=== PATIENT | male | born 1950 | race Caucasian/White ===

== ENCOUNTER 2018-01-12 17:53 | Inpatient (IN) | payer OTHER ==
[2018-01-12 17:59] VITALS: BMI 28.2
--- NOTE | 2018-01-12 22:36 | HP ---
Admission [facility] Chief Complaint: opioid rehabilitation Allergies/Adverse Reactions: Allergies Allergy/AdvReac Type Severity Reaction Status Date / Time No Known Allergies Allergy Verified 01/12/18 19:48 History of Present Illness: 67 yo male with hx of IV heroin dependence is here for rehabilitation. Reports using IV heroin although prescribed suboxone, reports not taking medication as directed. Last detox at [facility] three weeks ago. a PMHX: HTN, depression. Denies suicidal / homicidal ideation, reports hx of suicide attempts seven years ago by hanging. Denies hx of seizures, overdose or blackouts. #: [phone] Others' Prescriptions Patient Name: Xander Mendenhall Date: 1950 Address: [address] [place] [id number] Sex: Male Rx Written Rx Dispensed Drug Quantity Days Supply Prescriber Name 12/22/2017 12/22/2017 buprenorphine-naloxone 8-2 mg sl tablet 84 28 Yonatan Lambert MD 11/24/2017 11/24/2017 buprenorphine-naloxone 8-2 mg sl tablet 84 28 Yonatan Lambert MD 10/13/2017 10/13/2017 buprenorphine-naloxone 8-2 mg sl tablet 84 28 Yonatan Lambert MD 09/15/2017 09/15/2017 buprenorphine-naloxone 8-2 mg sl tablet 84 28 Yonatan Lambert MD 08/18/2017 08/18/2017 buprenorphine-naloxone 8-2 mg sl tablet 84 28 Yonatan Lambert MD 07/14/2017 07/14/2017 buprenorphine-naloxone 8-2 mg sl tablet 84 28 Yonatan Lambert MD 06/16/2017 06/16/2017 buprenorphine-naloxone 8-2 mg sl tablet 84 28 Yonatan Lambert MD 05/19/2017 05/19/2017 buprenorphine-naloxone 8-2 mg sl tablet 84 28 Yonatan Lambert MD 04/21/2017 05/01/2017 buprenorphine-naloxone 8-2 mg sl tablet 84 28 Yonatan Lambert MD 03/31/2017 03/31/2017 buprenorphine-naloxone 8-2 mg sl tablet 84 28 Yonatan Lambert MD 02/24/2017 02/27/2017 buprenorphine-naloxone 8-2 mg sl tablet 84 28 Yonatan Lambert MD Patient Name: Xander Mendenhall Date: 1950 Address: [address] [place] [id number] Sex: Male Rx Written Rx Dispensed Drug Quantity Days Supply Prescriber Name 01/27/2017 01/27/2017 buprenorphine-naloxone 8-2 mg sl tablet 84 28 Madelaine Posey A Exam Limitations: No Limitations - Ebola screening Have you been sick,other than usual withdrawal symptoms: No - Review of Systems Constitutional: Changes in sleep EENT: reports: Hearing Loss (decrease hearing b/t), Other (wers reading glasses) Respiratory: reports: No Symptoms reported Cardiac: reports: No Symptoms Reported GI: reports: Constipated (last BM yesterday) : reports: No Symptoms Reported Musculoskeletal: reports: No Symptoms Reported Integumentary: reports: No Symptoms Reported Neuro: reports: Dizziness Endocrine: reports: No Symptoms Reported Hematology: reports: No Symptoms Reported Psychiatric: reports: Orientated x3, Depressed Other Systems: Reviewed and Negative Patient History - Patient Medical History Hx Anemia: No Hx Asthma: No Hx Chronic Obstructive Pulmonary Disease (COPD): No Hx Cancer: No Hx Cardiac Disorders: No Hx Congestive Heart Failure: No Hx Hypertension: Yes (Lisinoprol 5 mg ) Hx Hypercholesterolemia: No Hx Pacemaker: No HX Cerebrovascular Accident: No Hx Seizures: No Hx Dementia: No Hx Diabetes: No Hx Gastrointestinal Disorders: No Hx Liver Disease: No Hx Genitourinary Disorders: No Hx Sexually Transmitted Disorders: No Hx Renal Disease (ESRD): No Hx Thyroid Disease: No Hx Human Immunodeficiency Virus (HIV): No Hx Hepatitis C: Yes (treated) Hx Depression: Yes Hx Suicide Attempt: No Hx Schizophrenia: No - Patient Surgical History Past Surgical History: Yes Hx Neurologic Surgery: No Hx Cataract Extraction: No Hx Cardiac Surgery: No Hx Lung Surgery: No Hx Breast Surgery: No Hx Breast Biopsy: No Hx Abdominal Surgery: No Hx Appendectomy: No Hx Cholecystectomy: No Hx Genitourinary Surgery: No Hx Section: No Hx Orthopedic Surgery: No Other Surgical History: VOCAL CORDS, HERNIA Anesthesia Reaction: No - PPD History Previous Implant?: Yes Documented Results: Positive w/o proof PPD to be Administered?: No - Smoking Cessation Smoking history: Never smoked Have you smoked in the past 12 months: No Hx Chewing Tobacco Use: No Initiated information on smoking cessation: No - Substance & Tx. History Hx Alcohol Use: Yes Hx Substance Use: Yes Substance Use Type: Heroin Hx Substance Use Treatment: Yes ( [facility] three weeks ago ) - Substances Abused Heroin Route: Injection Frequency: Daily Amount used: 7 bags Age of first use: 14 Date of Last Use: 01/11/18 Family Disease History - Family Disease History Family History: Denies Admission Physical Exam [facility] - Vital Signs Vital Signs: Vital Signs - 24 hr 01/12/18 17:57 Temperature 97.8 F Pulse Rate 70 Respiratory 18 Rate Blood Pressure 149/78 - Physical General Appearance: Yes: Nourished, Disheveled, Anxious HEENTM: Yes: EOMI, Hearing grossly Normal, Normal ENT Inspection, Normocephalic , Normal Voice, SORAYA, Pharynx Normal, Tm's normal Respiratory: Yes: Chest Non-Tender, Lungs Clear, Normal Breath Sounds, No Respiratory Distress, No Accessory Muscle Use Neck: Yes: Within Normal Limits Breast: Yes: Breast Exam Deferred Cardiology: Yes: Regular Rhythm, Regular Rate Abdominal: Yes: Normal Bowel Sounds, Non Tender, Flat, Soft Genitourinary: Yes: Within Normal Limits Back: Yes: Normal Inspection Musculoskeletal: Yes: full range of Motion, Gait Steady, Pelvis Stable Extremities: Yes: Normal Capillary Refill, Normal Inspection, Normal Range of Motion, Non-Tender 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, Fully Oriented, Alert, Motor Strength 5/5, Depressed Affect Integumentary: Yes: Normal Color, Warm, Track [place] Lymphatic: Yes: Within Normal Limits - Diagnostic (1) Hypertension Current Visit: Yes Status: Acute (2) Depression Current Visit: Yes Status: Suspected Qualifiers: Depression Type: dysthymia Qualified Code(s): F34.1 - Dysthymic disorder (3) Opioid dependence Current Visit: Yes Status: Acute S Breath Alcohol Content Breath Alcohol Content: 0 Urine Drug Screen - Results Drug Screen Negative: No Urine Drug Screen Results: OPI-Opiates, BZO-Benzodiazepines, MTD-Methadone, OXY- Oxycodone Inpatient Rehab Admission - Initial Determination Are CD services needed?: Yes Free of communicable disease: Yes Not in need of hospitalization: Yes - Rehab Admission Criteria Previous failed treatment: Yes Poor recovery environment: Yes Comorbidities: Yes Lacks judgement: Yes Patient is meeting Inpatient Rehab admission criteria:: Yes
[2018-01-12] MEDS ORDERED: ACETAMINOPHEN 325 MG TABLET (FP) PO PRN (22:38)
[2018-01-12] MEDS ORDERED: LOPERAMIDE HCL 2 MG CAPSULE PO PRN (22:38)
[2018-01-12] MEDS ORDERED: P-EPHED 60MG/TRIPROLIDI 2.5MG TABLET PO PRN (22:38)
[2018-01-12] MEDS ORDERED: MAGNESIUM CITRATE 300 ML BOTTLE PO PRN (22:38)
[2018-01-12] MEDS ORDERED: guaiFENesin/D-METHORPHAN HB 10 ML UNIT-DOSE CUPS PO PRN (22:38)
[2018-01-12] MEDS ORDERED: MAG HYDROX/AL HYDROX/SIMETH 30 ML UNIT-DOSE CUP PO PRN (22:38)
[2018-01-12] MEDS ORDERED: MENTHOL/PHENOL 1 EACH UD MM PRN (22:38)
[2018-01-12] MEDS: hydrOXYzine PAMOATE 50 MG CAPSULE (FP) PO PRN (23:48)
[2018-01-12] MEDS: MELATONIN 5 MG TABLETS PO PRN (23:50)
[2018-01-12] MEDS: MAGNESIUM HYDROX 2400MG/30ML ORAL SUSPENSION 30 ML CUP PO PRN (23:51)
[2018-01-13 10:10] LABS: HEMATOCRIT 40.6 % (35.4-49); HEMOGLOBIN 13.7 GM/dL (11.7-16.9); MCH 31.6 pg (25.7-33.7); MCHC 33.9 g/dl (32.0-35.9); MEAN CELL VOLUME 93.4 fl (80-96); MEAN PLT VOLUME 7.1 fl (7.5-11.1); PLATELET COUNT 299 K/MM3 (134-434); RBC 4.35 M/mm3 (4.00-5.60); RDW 13.3 % (11.9-15.9); WHITE BLOOD COUNT 5.7 K/mm3 (4.0-10.0)
[2018-01-13] MEDS: hydrOXYzine PAMOATE 50 MG CAPSULE (FP) PO PRN (10:24)
[2018-01-13] MEDS: PRENATAL VITAMINS W/ FOLIC ACID TABLET (FP) PO SCH (10:24)
[2018-01-13] MEDS: LISINOPRIL 5 MG TABLET (FP) PO SCH (10:24)
--- NOTE | 2018-01-13 11:56 | EKG ---
Test Reason : Blood Pressure : / mmHG Vent. Rate : 061 BPM Atrial Rate : 061 BPM P-R Int : 124 ms QRS Dur : 080 ms QT Int : 440 ms P-R-T Axes : 051 071 051 degrees QTc Int : 442 ms SINUS RHYTHM WITH PREMATURE ATRIAL COMPLEXES OTHERWISE NORMAL ECG NO PREVIOUS ECGS AVAILABLE Confirmed by TRACIE JAQUEZ, MICHAEL ([id number]) on 01/13/2018 11:55:36 AM Referred By: Confirmed By:MICHAEL HODGES MD
--- NOTE | 2018-01-13 12:17 | EKG ---
Test Reason : Blood Pressure : / mmHG Vent. Rate : 081 BPM Atrial Rate : 081 BPM P-R Int : 134 ms QRS Dur : 076 ms QT Int : 394 ms P-R-T Axes : 048 070 042 degrees QTc Int : 457 ms NORMAL SINUS RHYTHM NORMAL ECG WHEN COMPARED WITH ECG OF 12-JAN-2018 23:23, PREMATURE ATRIAL COMPLEXES ARE NO LONGER PRESENT Confirmed by MICHAEL HODGES MD ([id number]) on 01/13/2018 12:17:35 PM Referred By: Confirmed By:MICHAEL HODGES MD
[2018-01-13 12:27] LABS: CHLORIDE 105 mmol/L (98-107); POTASSIUM 4.1 mmol/L (3.5-5.1); SODIUM 142 mmol/L (136-145)
--- NOTE | 2018-01-13 12:31 | PN ---
[facility] Progress Note Note: this 67 years old male with history of heroin dependence ,recently completed detox in other facility, on suboxone maintenance 8mg/2 mg tid last prescription filled 12/22/17 also has history of hypertension,positive ppd,depression does not meet criteria for detox,will benefit in rehab patient is stble to be discharged today,to go to rehab as arrangement
[2018-01-13 12:47] LABS: ALBUMIN 3.4 g/dl (3.4-5.0); ALK PHOS 72 U/L (45-117); ANION GAP 10 MMOL/L (8-16); BLOOD UREA NITROGEN 17 mg/dL (7-18); CALCIUM 9.3 mg/dL (8.5-10.1); CO2 27 mmol/L (21-32); CREATININE 0.9 mg/dL (0.7-1.3); GLUCOSE,RANDOM 91 mg/dL (74-106); SGOT/AST 60 U/L (15-37); SGPT/ALT 77 U/L (12-78)
--- NOTE | 2018-01-13 12:47 | DS ---
[facility] Detox Discharge Summary Admission Date: 01/12/18 Discharge Date: 01/13/18 - History Present History: Opioid Dependence Additional Comments: patient discharge today,will go to rehab as arrangement Pertinent Past History: suboxone maintenance hypertension depression - Physical Exam Results Vital Signs: Vital Signs Temperature 97.5 F L 01/13/18 09:17 Pulse Rate 62 01/13/18 09:17 Respiratory Rate 16 01/13/18 09:17 Blood Pressure 121/66 01/13/18 09:17 O2 Sat by Pulse Oximetry (%) Pertinent Admission Physical Exam Findings: withdrawal signs and symptom Vital Signs Temperature 97.5 F L 01/13/18 09:17 Pulse Rate 62 01/13/18 09:17 Respiratory Rate 16 01/13/18 09:17 Blood Pressure 121/66 01/13/18 09:17 O2 Sat by Pulse Oximetry (%) Laboratory Last Values WBC 5.7 K/mm3 (4.0-10.0) 01/13/18 07:30 RBC 4.35 M/mm3 (4.00-5.60) 01/13/18 07:30 Hgb 13.7 GM/dL (11.7-16.9) 01/13/18 07:30 Hct 40.6 % (35.4-49) 01/13/18 07:30 MCV 93.4 fl (80-96) 01/13/18 07:30 MCH 31.6 pg (25.7-33.7) 01/13/18 07:30 MCHC 33.9 g/dl (32.0-35.9) 01/13/18 07:30 RDW 13.3 % (11.9-15.9) 01/13/18 07:30 Plt Count 299 K/MM3 (134-434) 01/13/18 07:30 MPV 7.1 fl (7.5-11.1) L 01/13/18 07:30 Sodium 142 mmol/L (136-145) 01/13/18 07:30 Potassium 4.1 mmol/L (3.5-5.1) 01/13/18 07:30 Chloride 105 mmol/L (98-107) 01/13/18 07:30 RPR Titer Nonreactive (NONREACTIVE) 01/13/18 07:30 HIV 1&2 Antibody Screen Negative 01/13/18 07:30 HIV P24 Antigen Negative 01/13/18 07:30 - Treatment Hospital Course: Rehab Referral Accepted Patient has Accepted a Rehab Referral to: [facility] - Medication Discharge Medications: Ambulatory Orders Lisinopril [Prinivil -] 5 mg PO DAILY 01/12/18 Sertraline HCl [Zoloft -] 50 mg PO DAILY 01/12/18 - AMA Did Patient Leave Against Medical Advice: No
--- NOTE | 2018-01-13 13:34 | PN ---
[facility] Progress Note Note: Vital Signs Temperature 97.5 F L 01/13/18 09:17 Pulse Rate 62 01/13/18 09:17 Respiratory Rate 16 01/13/18 09:17 Blood Pressure 121/66 01/13/18 09:17 O2 Sat by Pulse Oximetry (%) Patient currently in rehab for opioid dependence. Patient reports poor adherence with suboxone therapy. Patient unable to recall last time taking suboxone, report using heroin yesterday in AM. Patient stable. Will start Suboxone 4 mg TID and titrate dose as needed. increase fluids continue to monitor
[2018-01-13] MEDS ORDERED: BUPRENORPHINE/NALOXONE 2 MG/0.5 MG FILM PACKET SL ONE ×2 (14:00→22:00)
[2018-01-13] MEDS: BUPRENORPHINE/NALOXONE 2 MG/0.5 MG FILM PACKET SL SCH ×2 (14:44→21:01)
--- NOTE | 2018-01-13 16:41 | HP ---
Admission [facility] Chief Complaint: opioid rehabilitation Allergies/Adverse Reactions: Allergies Allergy/AdvReac Type Severity Reaction Status Date / Time No Known Allergies Allergy Verified 01/12/18 19:48 History of Present Illness: 67 yo male with hx of IV heroin dependence is here for rehabilitation. Reports using IV heroin although prescribed suboxone, reports not taking medication as directed. Last detox at [facility] three weeks ago. a PMHX: HTN, depression. Denies suicidal / homicidal ideation, reports hx of suicide attempts seven years ago by hanging. Denies hx of seizures, overdose or blackouts. #: [id number] Others' Prescriptions Patient Name: Xander Mendenhall Date: 1950 Address: [address] [place] [id number] Sex: Male Rx Written Rx Dispensed Drug Quantity Days Supply Prescriber Name 12/22/2017 12/22/2017 buprenorphine-naloxone 8-2 mg sl tablet 84 28 Yonatan Lambert MD 11/24/2017 11/24/2017 buprenorphine-naloxone 8-2 mg sl tablet 84 28 Yonatan Lambert MD 10/13/2017 10/13/2017 buprenorphine-naloxone 8-2 mg sl tablet 84 28 Yonatan Lambert MD 09/15/2017 09/15/2017 buprenorphine-naloxone 8-2 mg sl tablet 84 28 Yonatan Lambert MD 08/18/2017 08/18/2017 buprenorphine-naloxone 8-2 mg sl tablet 84 28 Yonatan Lambert MD 07/14/2017 07/14/2017 buprenorphine-naloxone 8-2 mg sl tablet 84 28 Yonatan Lambert MD 06/16/2017 06/16/2017 buprenorphine-naloxone 8-2 mg sl tablet 84 28 Yonatan Lambert MD 05/19/2017 05/19/2017 buprenorphine-naloxone 8-2 mg sl tablet 84 28 Yonatan Lambert MD 04/21/2017 05/01/2017 buprenorphine-naloxone 8-2 mg sl tablet 84 28 Yonatan Lambert MD 03/31/2017 03/31/2017 buprenorphine-naloxone 8-2 mg sl tablet 84 28 Yonatan Lambert MD 02/24/2017 02/27/2017 buprenorphine-naloxone 8-2 mg sl tablet 84 28 Yonatan Lambert MD Patient Name: Xander Mendenhall Date: 1950 Address: [address] [place] [id number] Sex: Male Rx Written Rx Dispensed Drug Quantity Days Supply Prescriber Name 01/27/2017 01/27/2017 buprenorphine-naloxone 8-2 mg sl tablet 84 28 Madelaine Posey A Exam Limitations: No Limitations - Ebola screening Have you been sick,other than usual withdrawal symptoms: No - Review of Systems Constitutional: Changes in sleep EENT: reports: Hearing Loss (b/l decrease), Other (wears glasses) Cardiac: reports: No Symptoms Reported GI: reports: Constipated (last BM x 2 days) : reports: No Symptoms Reported Musculoskeletal: reports: No Symptoms Reported Integumentary: reports: No Symptoms Reported Neuro: reports: No Symptoms reported Endocrine: reports: No Symptoms Reported Hematology: reports: No Symptoms Reported Psychiatric: reports: Orientated x3, Anxious Other Systems: Reviewed and Negative Patient History - Patient Medical History Hx Anemia: No Hx Asthma: No Hx Chronic Obstructive Pulmonary Disease (COPD): No Hx Cancer: No Hx Cardiac Disorders: No Hx Congestive Heart Failure: No Hx Hypertension: Yes (Lisinopril 5 mg ) Hx Hypercholesterolemia: No Hx Pacemaker: No HX Cerebrovascular Accident: No Hx Seizures: No Hx Dementia: No Hx Diabetes: No Hx Gastrointestinal Disorders: No Hx Liver Disease: No Hx Genitourinary Disorders: No Hx Sexually Transmitted Disorders: No Hx Renal Disease (ESRD): No Hx Thyroid Disease: No Hx Human Immunodeficiency Virus (HIV): No Hx Hepatitis C: Yes (treated) Hx Depression: Yes Hx Suicide Attempt: No Hx Bipolar Disorder: No Hx Schizophrenia: No - Patient Surgical History Past Surgical History: Yes Hx Neurologic Surgery: No Hx Cataract Extraction: No Hx Cardiac Surgery: No Hx Lung Surgery: No Hx Breast Surgery: No Hx Breast Biopsy: No Hx Abdominal Surgery: No Hx Appendectomy: No Hx Cholecystectomy: No Hx Genitourinary Surgery: No Hx Section: No Hx Orthopedic Surgery: No Other Surgical History: VOCAL CORDS, HERNIA Anesthesia Reaction: No - PPD History Previous Implant?: No (NEG CXRAY 12/2017) Documented Results: Positive w/o proof Results: NEG CXRAY PPD to be Administered?: No - Smoking Cessation Smoking history: Never smoked Have you smoked in the past 12 months: No Hx Chewing Tobacco Use: No Initiated information on smoking cessation: No - Substance & Tx. History Hx Alcohol Use: Yes Hx Substance Use: Yes Substance Use Type: Heroin Hx Substance Use Treatment: Yes ([facility] three weeks ago ) - Substances Abused Heroin Route: Injection Frequency: Daily Amount used: 7 bags Age of first use: 14 Date of Last Use: 01/11/18 Family Disease History - Family Disease History Family History: Denies Admission Physical Exam [facility] - Vital Signs Vital Signs: Vital Signs - 24 hr 01/12/18 01/13/18 01/13/18 17:57 00:30 03:30 Temperature 97.8 F Pulse Rate 70 Respiratory 18 18 18 Rate Blood Pressure 149/78 01/13/18 01/13/18 06:00 09:17 Temperature 97.2 F L 97.5 F L Pulse Rate 63 62 Respiratory 18 16 Rate Blood Pressure 131/78 121/66 - Physical General Appearance: Yes: Nourished, Disheveled, Anxious HEENTM: Yes: Within Normal Limits Respiratory: Yes: Within Normal Limits Neck: Yes: Within Normal Limits Breast: Yes: Breast Exam Deferred Cardiology: Yes: Regular Rhythm, Regular Rate Abdominal: Yes: Normal Bowel Sounds, Non Tender, Flat, Soft Genitourinary: Yes: Within Normal Limits Back: Yes: Normal Inspection Musculoskeletal: Yes: full range of Motion, Gait Steady, Pelvis Stable Extremities: Yes: Normal Capillary Refill, Normal Inspection, Normal Range of Motion, Non-Tender 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, Fully Oriented, Alert, Motor Strength 5/5 Integumentary: Yes: Normal Color, Dry, Warm Lymphatic: Yes: Within Normal Limits - Diagnostic (1) Hypertension Current Visit: Yes Status: Chronic Qualifiers: Hypertension type: essential hypertension Qualified Code(s): I10 - Essential (primary) hypertension (2) Depression Current Visit: Yes Status: Suspected Qualifiers: Depression Type: dysthymia Qualified Code(s): F34.1 - Dysthymic disorder (3) Opioid dependence Current Visit: Yes Status: Acute (4) Positive PPD Current Visit: Yes Status: Suspected [facility]HS Breath Alcohol Content Breath Alcohol Content: 0 Urine Drug Screen - Results Drug Screen Negative: No Urine Drug Screen Results: OPI-Opiates, BZO-Benzodiazepines, MTD-Methadone, OXY- Oxycodone Inpatient Rehab Admission - Initial Determination Are CD services needed?: Yes Free of communicable disease: Yes Not in need of hospitalization: Yes - Rehab Admission Criteria Previous failed treatment: Yes Poor recovery environment: Yes Comorbidities: Yes Lacks judgement: Yes Patient is meeting Inpatient Rehab admission criteria:: Yes
[2018-01-13] MEDS: THIAMINE HCL 100 MG TABLET (FP) PO SCH (21:01)
[2018-01-13] MEDS: MELATONIN 5 MG TABLETS PO PRN (21:02)
[2018-01-14] MEDS: IBUPROFEN 400 MG TABLET (FP) PO PRN ×2 (05:42→17:01)
[2018-01-14] MEDS: BUPRENORPHINE/NALOXONE 2 MG/0.5 MG FILM PACKET SL SCH ×2 (06:10→13:03)
[2018-01-14] MEDS ORDERED: ONDANSETRON *ODT* 4 MG TABLET SL PRN (07:28)
[2018-01-14] MEDS: PRENATAL VITAMINS W/ FOLIC ACID TABLET (FP) PO SCH (10:36)
[2018-01-14] MEDS: LISINOPRIL 5 MG TABLET (FP) PO SCH (10:36)
--- NOTE | 2018-01-14 11:56 | HP ---
Psychiatrist Admission - Data Date of interview: 01/14/18 Admission source: [facility] Identifying data: this is the first admission to [address] [place] [address] for this 67 yo H single father of 3 grown children,resides alone,supported by SSD. Medical History: HTN,Disk disease. Psychiatric History: Patient reports depressed mood,anxiety for a few years .No suicidal attempts,no admissions to psychiatric hospital.patient sees psychiatrist at [facility] in the [place].He is on Zoloft 50 mg po daily.Reports side effects from ZOloft :dizinnes,restlessness.Properties of Zoloft has been discussed with patient.Zoloft 50 mg podaily will be adjusted to 25 mg po daily. . Vital Signs: Vital Signs - 24 hr 01/14/18 01/14/18 01/14/18 00:30 03:28 06:30 Temperature 97.5 F L Pulse Rate 64 Respiratory 19 18 18 Rate Blood Pressure 152/80 Allergies/Adverse Reactions: Allergies Allergy/AdvReac Type Severity Reaction Status Date / Time No Known Allergies Allergy Verified 01/12/18 19:48 Concur with the findings of this exam: Yes - Substance Abuse/Tx History Hx Alcohol Use: Yes (socially) Hx Substance Use: Yes (heroinIV since 15-16 yo,7 bags daily,cocaine on/off) Substance Use Type: Alcohol, Heroin Hx Substance Use Treatment: Yes (longest abstinence 4 years ) Mental Status Exam - Mental Status Exam Alert and Oriented to: Time, Place, Person Cognitive Function: Grossly Intact Patient Appearance: Unkempt Mood: Sad Affect: Mood Congruent Patient Behavior: Cooperative Speech Pattern: Clear Voice Loudness: Normal Thought Process: Goal Oriented Thought Disorder: Not Present Hallucinations: Denies Suicidal Ideation: Denies Homicidal Ideation: Denies Insight/Judgement: Fair Sleep: Difficulty falling asleep Appetite: Good Muscle strength/Tone: Normal Gait/Station: Normal Psychiatric Findings - Problem List ([place] 1, 2,3) (1) Encounter for monitoring Suboxone maintenance therapy Current Visit: Yes Status: Chronic (2) Opioid dependence Current Visit: Yes Status: Chronic (3) Hypertension Current Visit: Yes Status: Chronic Qualifiers: Hypertension type: essential hypertension Qualified Code(s): I10 - Essential (primary) hypertension (4) Positive PPD Current Visit: Yes Status: Inactive (5) Substance induced mood disorder Current Visit: Yes Status: Chronic - Initial Treatment Plan Initial Treatment Plan: Zoloft 25 mg po daily.Will monitor progress.
[2018-01-14] MEDS: SERTRALINE HCL 25 MG TABLET (FP) PO SCH (12:53)
--- NOTE | 2018-01-14 14:47 | PN ---
S Progress Note (SOAP) Subjective: C/o nausea, vomiting, chills and achy bones. States still feeling withdrawal. Objective: 01/14/18 14:45 Alert and oriented. Pupils dilated 4 mm. Perspiration noted on brows. Mild tremors of hands when arms extended. Vital Signs 01/14/18 10:00 Pulse Rate 68 Blood Pressure 135/75 Assessment: Opiate withdrawal symptoms. Plan: Increase Suboxone to 8 mg SL BID. Continue rehab services.
[2018-01-14] MEDS: diphenhydrAMINE HCL 50 MG CAPSULE PO SCH (21:00)
[2018-01-14] MEDS: BUPRENORPHINE/NALOXONE 8 MG/2 MG FILM PACKET SL SCH (21:00)
[2018-01-14] MEDS: THIAMINE HCL 100 MG TABLET (FP) PO SCH (21:00)
[2018-01-15] MEDS: PRENATAL VITAMINS W/ FOLIC ACID TABLET (FP) PO SCH (09:41)
[2018-01-15] MEDS: LISINOPRIL 5 MG TABLET (FP) PO SCH (09:41)
[2018-01-15] MEDS: SERTRALINE HCL 25 MG TABLET (FP) PO SCH (09:41)
[2018-01-15] MEDS: BUPRENORPHINE/NALOXONE 8 MG/2 MG FILM PACKET SL SCH ×2 (09:41→21:02)
[2018-01-15] MEDS: IBUPROFEN 400 MG TABLET (FP) PO PRN (16:52)
[2018-01-15] MEDS: hydrOXYzine PAMOATE 50 MG CAPSULE (FP) PO PRN (16:53)
[2018-01-15] MEDS: THIAMINE HCL 100 MG TABLET (FP) PO SCH (21:01)
[2018-01-15] MEDS: diphenhydrAMINE HCL 50 MG CAPSULE PO SCH (21:01)
[2018-01-16] MEDS: SERTRALINE HCL 25 MG TABLET (FP) PO SCH (09:38)
[2018-01-16] MEDS: LISINOPRIL 5 MG TABLET (FP) PO SCH (09:38)
[2018-01-16] MEDS: BUPRENORPHINE/NALOXONE 8 MG/2 MG FILM PACKET SL SCH ×2 (09:38→21:06)
[2018-01-16] MEDS: PRENATAL VITAMINS W/ FOLIC ACID TABLET (FP) PO SCH (09:38)
[2018-01-16] MEDS: THIAMINE HCL 100 MG TABLET (FP) PO SCH (21:06)
[2018-01-16] MEDS: diphenhydrAMINE HCL 50 MG CAPSULE PO SCH (21:08)
[2018-01-17] MEDS: hydrOXYzine PAMOATE 50 MG CAPSULE (FP) PO PRN (09:34)
[2018-01-17] MEDS: LISINOPRIL 5 MG TABLET (FP) PO SCH (09:34)
[2018-01-17] MEDS: BUPRENORPHINE/NALOXONE 8 MG/2 MG FILM PACKET SL SCH ×2 (09:34→21:07)
[2018-01-17] MEDS: SERTRALINE HCL 25 MG TABLET (FP) PO SCH (09:34)
[2018-01-17] MEDS: PRENATAL VITAMINS W/ FOLIC ACID TABLET (FP) PO SCH (09:34)
[2018-01-17] MEDS: diphenhydrAMINE HCL 50 MG CAPSULE PO SCH (21:07)
[2018-01-17] MEDS: THIAMINE HCL 100 MG TABLET (FP) PO SCH (21:07)
[2018-01-18] MEDS: BUPRENORPHINE/NALOXONE 8 MG/2 MG FILM PACKET SL SCH ×2 (10:03→21:05)
[2018-01-18] MEDS: LISINOPRIL 5 MG TABLET (FP) PO SCH (10:03)
[2018-01-18] MEDS: PRENATAL VITAMINS W/ FOLIC ACID TABLET (FP) PO SCH (10:03)
[2018-01-18] MEDS: hydrOXYzine PAMOATE 50 MG CAPSULE (FP) PO PRN (10:04)
[2018-01-18] MEDS: SERTRALINE HCL 25 MG TABLET (FP) PO SCH (10:05)
[2018-01-18] MEDS: diphenhydrAMINE HCL 50 MG CAPSULE PO SCH (21:05)
[2018-01-18] MEDS: THIAMINE HCL 100 MG TABLET (FP) PO SCH (21:05)
--- NOTE | 2018-01-19 09:24 | PN ---
S Progress Note Note: Psychiatric nurse practitioner note: Pt. reports feeling fatigue and drowsy after accepting zoloft 25mg in the morning. Pt. agreeable to accepting medication in the evening. Will continue to monitor.
[2018-01-19] MEDS: BUPRENORPHINE/NALOXONE 8 MG/2 MG FILM PACKET SL SCH ×2 (09:31→21:05)
[2018-01-19] MEDS: PRENATAL VITAMINS W/ FOLIC ACID TABLET (FP) PO SCH (09:31)
[2018-01-19] MEDS: LISINOPRIL 5 MG TABLET (FP) PO SCH (09:32)
[2018-01-19] MEDS: hydrOXYzine PAMOATE 50 MG CAPSULE (FP) PO PRN (09:33)
[2018-01-19] MEDS: diphenhydrAMINE HCL 50 MG CAPSULE PO SCH (21:05)
[2018-01-19] MEDS: THIAMINE HCL 100 MG TABLET (FP) PO SCH (21:05)
[2018-01-19] MEDS: SERTRALINE HCL 25 MG TABLET (FP) PO SCH (21:05)
[2018-01-20] MEDS: LISINOPRIL 5 MG TABLET (FP) PO SCH (09:32)
[2018-01-20] MEDS: BUPRENORPHINE/NALOXONE 8 MG/2 MG FILM PACKET SL SCH ×2 (09:32→21:03)
[2018-01-20] MEDS: PRENATAL VITAMINS W/ FOLIC ACID TABLET (FP) PO SCH (09:32)
[2018-01-20] MEDS: THIAMINE HCL 100 MG TABLET (FP) PO SCH (21:03)
[2018-01-20] MEDS: diphenhydrAMINE HCL 50 MG CAPSULE PO SCH (21:03)
[2018-01-20] MEDS: SERTRALINE HCL 25 MG TABLET (FP) PO SCH (21:03)
[2018-01-21] MEDS: PRENATAL VITAMINS W/ FOLIC ACID TABLET (FP) PO SCH (09:42)
[2018-01-21] MEDS: LISINOPRIL 5 MG TABLET (FP) PO SCH (09:42)
[2018-01-21] MEDS: BUPRENORPHINE/NALOXONE 8 MG/2 MG FILM PACKET SL SCH ×2 (09:42→21:35)
[2018-01-21] MEDS: hydrOXYzine PAMOATE 50 MG CAPSULE (FP) PO PRN (09:43)
[2018-01-21] MEDS: SERTRALINE HCL 25 MG TABLET (FP) PO SCH (21:34)
[2018-01-21] MEDS: diphenhydrAMINE HCL 50 MG CAPSULE PO SCH (21:34)
[2018-01-21] MEDS: MELATONIN 5 MG TABLETS PO PRN (21:34)
[2018-01-21] MEDS: THIAMINE HCL 100 MG TABLET (FP) PO SCH (21:34)
[2018-01-22] MEDS: LISINOPRIL 5 MG TABLET (FP) PO SCH (09:41)
[2018-01-22] MEDS: PRENATAL VITAMINS W/ FOLIC ACID TABLET (FP) PO SCH (09:41)
[2018-01-22] MEDS: BUPRENORPHINE/NALOXONE 8 MG/2 MG FILM PACKET SL SCH ×2 (09:41→21:10)
[2018-01-22] MEDS: hydrOXYzine PAMOATE 50 MG CAPSULE (FP) PO PRN (09:42)
[2018-01-22] MEDS: MAGNESIUM HYDROX 2400MG/30ML ORAL SUSPENSION 30 ML CUP PO PRN (14:26)
[2018-01-22] MEDS: diphenhydrAMINE HCL 50 MG CAPSULE PO SCH (21:10)
[2018-01-22] MEDS: SERTRALINE HCL 25 MG TABLET (FP) PO SCH (21:10)
[2018-01-22] MEDS: THIAMINE HCL 100 MG TABLET (FP) PO SCH (21:10)
[2018-01-23] MEDS: PRENATAL VITAMINS W/ FOLIC ACID TABLET (FP) PO SCH (09:30)
[2018-01-23] MEDS: LISINOPRIL 5 MG TABLET (FP) PO SCH (09:30)
[2018-01-23] MEDS: BUPRENORPHINE/NALOXONE 8 MG/2 MG FILM PACKET SL SCH ×2 (09:30→21:02)
[2018-01-23] MEDS: hydrOXYzine PAMOATE 50 MG CAPSULE (FP) PO PRN (09:31)
[2018-01-23] MEDS: SERTRALINE HCL 25 MG TABLET (FP) PO SCH (21:01)
[2018-01-23] MEDS: THIAMINE HCL 100 MG TABLET (FP) PO SCH (21:01)
[2018-01-23] MEDS: diphenhydrAMINE HCL 50 MG CAPSULE PO SCH (21:01)
[2018-01-24] MEDS: BUPRENORPHINE/NALOXONE 8 MG/2 MG FILM PACKET SL SCH ×2 (09:40→21:04)
[2018-01-24] MEDS: PRENATAL VITAMINS W/ FOLIC ACID TABLET (FP) PO SCH (09:40)
[2018-01-24] MEDS: LISINOPRIL 5 MG TABLET (FP) PO SCH (09:40)
--- NOTE | 2018-01-24 13:02 | PN ---
[facility] Progress Note Note: Vital Signs Temperature 97.9 F 01/24/18 07:09 Pulse Rate 81 01/24/18 10:00 Respiratory Rate 18 01/24/18 07:09 Blood Pressure 132/69 01/24/18 10:00 O2 Sat by Pulse Oximetry (%) Laboratory Last Values WBC 5.7 K/mm3 (4.0-10.0) 01/13/18 07:30 RBC 4.35 M/mm3 (4.00-5.60) 01/13/18 07:30 Hgb 13.7 GM/dL (11.7-16.9) 01/13/18 07:30 Hct 40.6 % (35.4-49) 01/13/18 07:30 MCV 93.4 fl (80-96) 01/13/18 07:30 MCH 31.6 pg (25.7-33.7) 01/13/18 07:30 MCHC 33.9 g/dl (32.0-35.9) 01/13/18 07:30 RDW 13.3 % (11.9-15.9) 01/13/18 07:30 Plt Count 299 K/MM3 (134-434) 01/13/18 07:30 MPV 7.1 fl (7.5-11.1) L 01/13/18 07:30 Sodium 142 mmol/L (136-145) 01/13/18 07:30 Potassium 4.1 mmol/L (3.5-5.1) 01/13/18 07:30 Chloride 105 mmol/L (98-107) 01/13/18 07:30 Carbon Dioxide 27 mmol/L (21-32) 01/13/18 07:30 Anion Gap 10 MMOL/L (8-16) 01/13/18 07:30 BUN 17 mg/dL (7-18) 01/13/18 07:30 Creatinine 0.9 mg/dL (0.7-1.3) 01/13/18 07:30 Creat Clearance w eGFR > 60 (>60) 01/13/18 07:30 Random Glucose 91 mg/dL (74-106) 01/13/18 07:30 Calcium 9.3 mg/dL (8.5-10.1) 01/13/18 07:30 Total Bilirubin 1.0 mg/dL (0.2-1.0) 01/13/18 07:30 AST 60 U/L (15-37) H 01/13/18 07:30 ALT 77 U/L (12-78) 01/13/18 07:30 Alkaline Phosphatase 72 U/L (45-117) 01/13/18 07:30 Total Protein 7.0 g/dl (6.4-8.2) 01/13/18 07:30 Albumin 3.4 g/dl (3.4-5.0) 01/13/18 07:30 RPR Titer Nonreactive (NONREACTIVE) 01/13/18 07:30 HIV 1&2 Antibody Screen Negative 01/13/18 07:30 HIV P24 Antigen Negative 01/13/18 07:30 dry itchy skin on nasal labia folds AOX3 no dsitress no adventiciosu breath sounds skin intact + mild erythema nasal labia folds full ROM ambualting independnetly hydrocortisone TP cream increase PO fluids d/c tylenol patient to follow up with primary care physiciain upon dischage
[2018-01-24] MEDS: SERTRALINE HCL 25 MG TABLET (FP) PO SCH (21:04)
[2018-01-24] MEDS: THIAMINE HCL 100 MG TABLET (FP) PO SCH (21:04)
[2018-01-24] MEDS: diphenhydrAMINE HCL 50 MG CAPSULE PO SCH (21:04)
[2018-01-25] MEDS: BUPRENORPHINE/NALOXONE 8 MG/2 MG FILM PACKET SL SCH ×2 (09:51→21:04)
[2018-01-25] MEDS: PRENATAL VITAMINS W/ FOLIC ACID TABLET (FP) PO SCH (09:51)
[2018-01-25] MEDS: LISINOPRIL 5 MG TABLET (FP) PO SCH (09:51)
[2018-01-25] MEDS: hydrOXYzine PAMOATE 50 MG CAPSULE (FP) PO PRN (09:52)
[2018-01-25] MEDS: HYDROCORTISONE 1% TOPICAL OINT 30 GM TUBE TP PRN ×2 (09:53→21:05)
[2018-01-25] MEDS: SERTRALINE HCL 25 MG TABLET (FP) PO SCH (21:04)
[2018-01-25] MEDS: diphenhydrAMINE HCL 50 MG CAPSULE PO SCH (21:04)
[2018-01-25] MEDS: THIAMINE HCL 100 MG TABLET (FP) PO SCH (21:04)
[2018-01-26] MEDS: PRENATAL VITAMINS W/ FOLIC ACID TABLET (FP) PO SCH (09:33)
[2018-01-26] MEDS: LISINOPRIL 5 MG TABLET (FP) PO SCH (09:33)
[2018-01-26] MEDS: BUPRENORPHINE/NALOXONE 8 MG/2 MG FILM PACKET SL SCH ×2 (09:33→21:04)
[2018-01-26] MEDS: hydrOXYzine PAMOATE 50 MG CAPSULE (FP) PO PRN (09:35)
[2018-01-26] MEDS: HYDROCORTISONE 1% TOPICAL OINT 30 GM TUBE TP PRN ×2 (09:35→21:05)
[2018-01-26] MEDS: diphenhydrAMINE HCL 50 MG CAPSULE PO SCH (21:03)
[2018-01-26] MEDS: SERTRALINE HCL 25 MG TABLET (FP) PO SCH (21:03)
[2018-01-26] MEDS: THIAMINE HCL 100 MG TABLET (FP) PO SCH (21:04)
[2018-01-27] MEDS: LISINOPRIL 5 MG TABLET (FP) PO SCH (09:42)
[2018-01-27] MEDS: PRENATAL VITAMINS W/ FOLIC ACID TABLET (FP) PO SCH (09:42)
[2018-01-27] MEDS: BUPRENORPHINE/NALOXONE 8 MG/2 MG FILM PACKET SL SCH ×2 (09:42→21:04)
[2018-01-27] MEDS: HYDROCORTISONE 1% TOPICAL OINT 30 GM TUBE TP PRN ×2 (09:43→21:06)
[2018-01-27] MEDS ORDERED: COLLOIDAL OATMEAL 1 BAR EACH TP PRN (15:30)
[2018-01-27] MEDS: SERTRALINE HCL 25 MG TABLET (FP) PO SCH (21:04)
[2018-01-27] MEDS: THIAMINE HCL 100 MG TABLET (FP) PO SCH (21:04)
[2018-01-27] MEDS: diphenhydrAMINE HCL 50 MG CAPSULE PO SCH (21:04)
[2018-01-28] MEDS: BUPRENORPHINE/NALOXONE 8 MG/2 MG FILM PACKET SL SCH ×2 (09:48→21:03)
[2018-01-28] MEDS: PRENATAL VITAMINS W/ FOLIC ACID TABLET (FP) PO SCH (09:48)
[2018-01-28] MEDS: LISINOPRIL 5 MG TABLET (FP) PO SCH (09:48)
[2018-01-28] MEDS: HYDROCORTISONE 1% TOPICAL OINT 30 GM TUBE TP PRN ×2 (09:48→21:05)
[2018-01-28] MEDS: SERTRALINE HCL 25 MG TABLET (FP) PO SCH (21:03)
[2018-01-28] MEDS: diphenhydrAMINE HCL 50 MG CAPSULE PO SCH (21:03)
[2018-01-28] MEDS: THIAMINE HCL 100 MG TABLET (FP) PO SCH (21:03)
[2018-01-29] MEDS: LISINOPRIL 5 MG TABLET (FP) PO SCH (10:03)
[2018-01-29] MEDS: PRENATAL VITAMINS W/ FOLIC ACID TABLET (FP) PO SCH (10:03)
[2018-01-29] MEDS: BUPRENORPHINE/NALOXONE 8 MG/2 MG FILM PACKET SL SCH ×2 (10:04→21:03)
[2018-01-29] MEDS: diphenhydrAMINE HCL 50 MG CAPSULE PO SCH (21:03)
[2018-01-29] MEDS: THIAMINE HCL 100 MG TABLET (FP) PO SCH (21:03)
[2018-01-29] MEDS: SERTRALINE HCL 25 MG TABLET (FP) PO SCH (21:03)
[2018-01-30] MEDS: LISINOPRIL 5 MG TABLET (FP) PO SCH (09:46)
[2018-01-30] MEDS: BUPRENORPHINE/NALOXONE 8 MG/2 MG FILM PACKET SL SCH ×2 (09:46→21:05)
[2018-01-30] MEDS: PRENATAL VITAMINS W/ FOLIC ACID TABLET (FP) PO SCH (09:46)
[2018-01-30] MEDS: hydrOXYzine PAMOATE 50 MG CAPSULE (FP) PO PRN (09:47)
[2018-01-30] MEDS: diphenhydrAMINE HCL 50 MG CAPSULE PO SCH (21:05)
[2018-01-30] MEDS: THIAMINE HCL 100 MG TABLET (FP) PO SCH (21:05)
[2018-01-30] MEDS: SERTRALINE HCL 25 MG TABLET (FP) PO SCH (21:05)
[2018-01-31] MEDS: hydrOXYzine PAMOATE 50 MG CAPSULE (FP) PO PRN (00:45)
[2018-01-31] MEDS: PRENATAL VITAMINS W/ FOLIC ACID TABLET (FP) PO SCH (10:02)
[2018-01-31] MEDS: LISINOPRIL 5 MG TABLET (FP) PO SCH (10:02)
[2018-01-31] MEDS: BUPRENORPHINE/NALOXONE 8 MG/2 MG FILM PACKET SL SCH ×2 (10:02→21:05)
[2018-01-31] MEDS: HYDROCORTISONE 1% TOPICAL OINT 30 GM TUBE TP PRN (10:03)
[2018-01-31] MEDS: THIAMINE HCL 100 MG TABLET (FP) PO SCH (21:05)
[2018-01-31] MEDS: diphenhydrAMINE HCL 50 MG CAPSULE PO SCH (21:05)
[2018-01-31] MEDS: SERTRALINE HCL 25 MG TABLET (FP) PO SCH (21:05)
[2018-02-01] MEDS: PRENATAL VITAMINS W/ FOLIC ACID TABLET (FP) PO SCH (09:47)
[2018-02-01] MEDS: BUPRENORPHINE/NALOXONE 8 MG/2 MG FILM PACKET SL SCH ×2 (09:47→21:03)
[2018-02-01] MEDS: LISINOPRIL 5 MG TABLET (FP) PO SCH (09:47)
[2018-02-01] MEDS: hydrOXYzine PAMOATE 50 MG CAPSULE (FP) PO PRN (09:48)
[2018-02-01] MEDS: SERTRALINE HCL 25 MG TABLET (FP) PO SCH (21:03)
[2018-02-01] MEDS: THIAMINE HCL 100 MG TABLET (FP) PO SCH (21:03)
[2018-02-01] MEDS: diphenhydrAMINE HCL 50 MG CAPSULE PO SCH (21:03)
[2018-02-02] MEDS: hydrOXYzine PAMOATE 50 MG CAPSULE (FP) PO PRN (09:37)
[2018-02-02] MEDS: LISINOPRIL 5 MG TABLET (FP) PO SCH (09:38)
[2018-02-02] MEDS: PRENATAL VITAMINS W/ FOLIC ACID TABLET (FP) PO SCH (09:38)
[2018-02-02] MEDS: BUPRENORPHINE/NALOXONE 8 MG/2 MG FILM PACKET SL SCH ×2 (09:38→21:03)
--- NOTE | 2018-02-02 10:35 | PN ---
Psychiatric Progress Note Vital Signs: Vital Signs Period Temp Pulse Resp BP Sys/Lozoya Pulse Ox Last 24 Hr 98.6 F 57 16-18 91/53 Date of Session: 02/02/18 Chief Complaint:: Discharge Note HPI: Patient addressing Opioid Dependence comorbid with Opioid Dependence on Agonist Therapy and Substance-Induced Mood Disorder ROS: HTN, PPD+ Current Medications: Active Medications Generic Name Dose Route Start Last Admin Trade Name Freq PRN Reason Stop Dose Admin Al Hydroxide/Mg Hydroxide 30 ml 01/12/18 22:38 01/28/18 18:08 Mylanta Oral Suspension - PO 30 ml Q6H PRN Administration DYSPEPSIA Buprenorphine/Naloxone 1 each 01/14/18 22:00 02/02/18 09:38 Suboxone 8mg/2mg Sl Film - SL 1 each BID REINIER Administration Colloidal Oatmeal 1 applic 01/27/18 15:30 01/28/18 09:48 Aveeno Soap - TP 1 applic DAILY PRN Administration HYGEINE Diphenhydramine HCl 50 mg 01/14/18 22:00 02/01/18 21:03 Benadryl - PO 50 mg HS REINIER Administration Eucalyptus/Menthol/Phenol/Sorbitol 1 each 01/12/18 22:38 Cepastat Lozenge - MM Q4H PRN SORE THROAT Guaifenesin 10 ml 01/12/18 22:38 Robitussin Dm - PO Q6H PRN COUGH Hydrocortisone 1 applic 01/24/18 12:59 01/31/18 10:03 Hytone 1% Ointment - TP 1 applic DAILY PRN Administration itching Hydroxyzine Pamoate 50 mg 01/12/18 22:38 02/02/18 09:37 Vistaril - PO 50 mg Q4H PRN Administration AGITATION Ibuprofen 400 mg 01/12/18 22:38 01/15/18 16:52 Motrin - PO 400 mg Q6H PRN Administration Pain level 4-6 Lisinopril 5 mg 01/13/18 10:00 02/02/18 09:38 Prinivil PO 5 mg DAILY REINIER Administration Loperamide HCl 4 mg 01/12/18 22:38 Imodium - PO Q6H PRN DIARRHEA Magnesium Citrate 300 ml 01/12/18 22:38 01/13/18 08:40 Citroma - PO 300 ml Q48H PRN Administration CONSTIPATION Magnesium Hydroxide 30 ml 01/12/18 22:38 01/22/18 14:26 Milk Of Magnesia - PO 30 ml DAILY PRN Administration CONSTIPATION Melatonin 5 mg 01/12/18 22:00 01/21/18 21:34 Melatonin PO 5 mg HS PRN Administration INSOMNIA Ondansetron HCl 4 mg 01/14/18 07:28 01/14/18 08:34 Zofran Odt - SL 4 mg Q8H PRN Administration NAUSEA AND/OR VOMITING Multivit/Folic Acid/Iron 1 tab 01/13/18 10:00 02/02/18 09:38 Vitamins (Sjr) - PO 1 tab DAILY REINIER Administration Pseudoephedrine/Triprolidine 1 combo 01/12/18 22:38 Actifed - PO TID PRN NASAL CONGESTION Sertraline HCl 25 mg 01/19/18 22:00 02/01/18 21:03 Zoloft - PO 25 mg HS REINIER Administration Thiamine HCl 100 mg 01/13/18 22:00 02/01/18 21:03 Vitamin B1 - PO 100 mg HS REINIER Administration Current Side Effect: No Lab tests ordered: Yes Lab tests reviewed: Yes Provider note:: Patient will complete this program on 02/03/18. He has met his treatment goals and will continue to address his issues in outpatient treatment at [facility] at [address] [place] [address]. Told headline writer that from his participation in this program, he has learned the skills that he needs to fight his addiction. He responded well to Zoloft 25 mg po HS. Script for 30 days supply of that medication will be electronically transmitted to [facility] at [address] [place] [address]. He is stable for discharge on 02/03/18 Total face to face time:: 35 Mental Status Exam - Mental Status Exam Alert and Oriented to: Time, Place, Person Cognitive Function: Fair Patient Appearance: Disheveled Mood: Hopeful, Euthymic Affect: Appropriate Patient Behavior: Cooperative Speech Pattern: Clear Voice Loudness: Normal Thought Process: Intact, Goal Oriented Hallucinations: Denies Suicidal Ideation: Denies Homicidal Ideation: Denies Insight/Judgement: Fair Sleep: Fair Appetite: Good Muscle strength/Tone: Normal Gait/Station: Normal Psychiatric Treatment Plan - Problem List (1) Opioid dependence Current Visit: Yes (2) Opioid dependence on agonist therapy Current Visit: Yes (3) Substance induced mood disorder Current Visit: Yes (4) Positive PPD Current Visit: Yes (5) Hypertension Current Visit: Yes Qualifiers: Hypertension type: essential hypertension Qualified Code(s): I10 - Essential (primary) hypertension Initial treatment plan: Patient will be discharged tomorrow and referred to [facility] for outpatient treatment
--- NOTE | 2018-02-02 13:13 | PN ---
[facility] Progress Note Note: Vital Signs Temperature 98.6 F 02/02/18 06:53 Pulse Rate 57 L 02/02/18 06:53 Respiratory Rate 16 02/02/18 06:53 Blood Pressure 91/53 02/02/18 06:53 O2 Sat by Pulse Oximetry (%) Patient medically stable. Patient will complete this program on 02/03/18. Patient will follow up with [facility] at [address] [place] [address]. Patient to follow up and continue suboxone therapy with Dr. Lambert in the community, one week supply of Suboxone was transmitted to [facility]. Patient to follow up with primary are provider in 1 - 2 weeks .
[2018-02-02] MEDS: THIAMINE HCL 100 MG TABLET (FP) PO SCH (21:03)
[2018-02-02] MEDS: SERTRALINE HCL 25 MG TABLET (FP) PO SCH (21:03)
[2018-02-02] MEDS: diphenhydrAMINE HCL 50 MG CAPSULE PO SCH (21:03)
[2018-02-02] MEDS: HYDROCORTISONE 1% TOPICAL OINT 30 GM TUBE TP PRN (21:05)
[2018-02-03 06:48] VITALS: BP 117/70; PULSE 84; TEMP 97.6
[2018-02-03] MEDS: LISINOPRIL 5 MG TABLET (FP) PO SCH (09:42)
[2018-02-03] MEDS: PRENATAL VITAMINS W/ FOLIC ACID TABLET (FP) PO SCH (09:42)
[2018-02-03] MEDS: BUPRENORPHINE/NALOXONE 8 MG/2 MG FILM PACKET SL SCH (09:43)
== END 2018-02-03 10:15 | disposition home or self-care (01) | DRG 895 ==
LOC: YASAS 17:53 → Y6N 21:29 → UNDODISIN 01-13 12:40 → Y5N 01-13 12:56
PROVIDERS: ATTEND Psychiatry & Neurology Psychiatry
PROC: HZ2ZZZZ Detoxification Services for Substance Abuse Treatment (ICD-10-PCS; 2018-01-12)
PROC: HZ42ZZZ Group Counseling for Substance Abuse Treatment, Cognitive-Behavioral (ICD-10-PCS; principal; 2018-01-14)
DX: F11.20 Opioid dependence, uncomplicated (principal); F19.24 Other psychoactive substance dependence with psychoactive substance-induced mood disorder; F34.1 Dysthymic disorder; I10 Essential (primary) hypertension; H91.93 Unspecified hearing loss, bilateral; R76.11 Nonspecific reaction to tuberculin skin test without active tuberculosis; Z51.81 Encounter for therapeutic drug level monitoring; Z91.5 Personal history of self-harm
CPT/HCPCS: 36415; 71046-TC-FY; 80053; 85027; 86593; 87389; 93005; 93010; Q0162